=== PATIENT | female | born 1970 | race Caucasian/White ===

== ENCOUNTER → 2020-01-10 16:10 | Outpatient (BNVA) | payer OTHER, SELFPAY | PROVIDERS: Family Provider Nurse Practitioner Family; Visit Provider Nurse Practitioner Family | DX: Z20.828 Contact with and (suspected) exposure to other viral communicable diseases (principal); J06.9 Acute upper respiratory infection, unspecified | CPT/HCPCS: 87635 ==

== ENCOUNTER → 2020-10-25 09:37 | Outpatient (BNVA) | payer OTHER, SELFPAY | PROVIDERS: Family Provider Nurse Practitioner Family; Visit Provider Nurse Practitioner Family | DX: Z20.828 Contact with and (suspected) exposure to other viral communicable diseases (principal) | CPT/HCPCS: 87635 ==

== ENCOUNTER 2021-05-11 09:22 | Emergency (ER) | payer SELFPAY ==
[2021-05-11 09:57] VITALS: BP 164/89; PULSE 109; RESP 20; TEMP 38.1; O2SAT 95; BMI 34.9
--- NOTE | 2021-05-11 10:03 | XRR_ITS ---
PROCEDURE INFORMATION: Exam: XR Chest Exam date and time: 05/11/2021 10:03 AM Age: 50 years old Clinical indication: Cough and shortness of breath TECHNIQUE: Imaging protocol: XR of the chest. Views: 1 view. Total images: 2 COMPARISON: [facility] Abdomen 1 view 07/01/2017 3:42 PM FINDINGS: Lungs: Unremarkable. No consolidation. Pleural spaces: Unremarkable. No pleural effusion. No pneumothorax. Heart/Mediastinum: Unremarkable. No cardiomegaly. Bones/joints: Unremarkable. XR/XR chest 1V portable [id number] IMPRESSION: No acute findings.
--- NOTE | 2021-05-11 10:09 | W.ED.COVID ---
Documented by User: FLORESITA Tamayo 05/11/21 12:44 HPI - COVID General: Chief Complaint: COVID symptoms Stated Complaint: Covid + diff breathing, coughing, headache Time Seen by Provider: 05/11/21 10:03 Triage information: Has fever, cough or shortness of breath. No known COVID + exposure last 14 days History of Present Illness: Patient tested positive at home in the last week. She tested 7 days ago and then she tested again on Friday. Patient placed but fever body aches cough MD complaint: known COVID positive Prior covid testing: yes, results known Prior testing date: 05/07/21 COVID 19 common symptoms: positive productive cough, dyspnea and headache(s); negative fever(s), chills, non-productive cough, body aches, throat pain, nasal congestion, nausea or vomiting COVID 19 other sytmptoms: negative chest pain Onset (ago): day(s) Severity: mild COVID Results: SARS-CoV-2 RNA (RT-PCR) Not detected (NOT DETECTED) 10/25/20 09:37 10/25/20 Review of Systems Const: Denies: fever(s), chills or body aches Eyes: Denies: change in vision or blurry vision ENMT: Denies: throat pain or nasal congestion Card: Denies: chest pain or dyspnea on exertion Resp: Reports: dyspnea and productive cough; Denies: non-productive cough GI: Denies: abdominal pain, nausea or vomiting Musc: Reports: extremity pain and other (Muscle aches) Skin/Breast: Denies: rash Neuro: Reports: headache(s) Psych: Denies: anxiety or depression Bijan/Lymph: Denies: easy bruising Physical Exam Const: COMMON NORMALS: no acute distress, average body habitus and patient oriented x3 HENMT: COMMON NORMALS: normocephalic HEAD & SCALP: normal to inspection and normocephalic FACE & SINUS: normal facial exam Eye: COMMON NORMALS: conjunctivae normal GENERAL EYE: appearance normal, both eyes and all related structures CONJUNCTIVA: Yes conjunctivae normal Neck/C-Spine: COMMON NORMALS: no JVD Chest: COMMONS NORMALS: normal inspection of the chest Resp: COMMON NORMALS: normal respiratory effort Cardio: COMMON NORMALS: no JVD RATE: tachycardic GI: INSPECTION: Yes normal to inspection Extremity: COMMON NORMALS: normal to inspection and full ROM Neuro: COMMON NORMALS: patient oriented x3 Skin: OTHER: Hot to touch Course Vital Signs: Vital signs: Vital Signs Temperature 100.6 F H 05/11/21 10:43 Pulse Rate 107 H 05/11/21 10:43 Respiratory Rate 20 H 05/11/21 10:43 Blood Pressure 164/89 05/11/21 10:43 Pulse Oximetry 94 05/11/21 10:43 MDM - COVID Medical Decision Making Patient with Covid symptoms. Patient is stable. Chest x-ray is clear. Lab Data Radiology Impressions Chest X-Ray 05/11/21 10:03 IMPRESSION: No acute findings. SARS-CoV-2 RNA (RT-PCR) Not detected (NOT DETECTED) 10/25/20 09:37 10/25/20 Discharge Plan Discharge Patient Disposition: Home Clinical Impression: COVID-19 Condition: Stable Prescriptions: New Decadron 6 mg tablet 6 mg PO DAILY Qty: 7 0RF cephalexin 500 mg capsule 500 mg PO Q8H 7 Days Qty: 21 0RF Discontinued prednisone 20 mg tablet 40 mg PO DAILY 5 Days Qty: 10 0RF Discharge Orders: Discharge ED (Routine); Ordered 05/11/21 Ordered By: Ben Domínguez Discharge Diet: Advance as tolerated Discharge Activity: Increase activity as tolerated Patient Instructions: COVID-19 (Coronavirus Disease 2019) (ED) Activity Restrictions/Additional Instructions: Follow-up with medical provider as directed. Take medications as prescribed. Return to the ER or your medical provider if condition worsens. Please read and understand discharge instructions. If any questions ask please. Coding Level of Care Code ED Insulation Estimator for Chg Fwd Exam Comprehensive Documented by User: David Ambrose DO 05/11/21 15:21 HPI - COVID General: Chief Complaint: COVID symptoms Stated Complaint: Covid + diff breathing, coughing, headache Time Seen by Provider: 05/11/21 10:03 COVID Results: SARS-CoV-2 RNA (RT-PCR) Not detected (NOT DETECTED) 10/25/20 09:37 10/25/20 Course Vital Signs: Vital signs: Vital Signs Temperature 100.6 F H 05/11/21 10:43 Pulse Rate 107 H 05/11/21 10:43 Respiratory Rate 20 H 05/11/21 10:43 Blood Pressure 164/89 05/11/21 10:43 Pulse Oximetry 94 05/11/21 10:43 MDM - COVID Medical Decision Making Patient with Covid symptoms. Patient is stable. Chest x-ray is clear. Chart reviewed and patient discussed with midlevel. Agree with assessment and plan. Medical Records I reviewed the patient's medical records. Lab Data I reviewed the patient's lab results. Radiology Impressions Chest X-Ray 05/11/21 10:03 IMPRESSION: No acute findings. SARS-CoV-2 RNA (RT-PCR) Not detected (NOT DETECTED) 10/25/20 09:37 10/25/20 Discharge Plan Discharge Patient Disposition: Home Clinical Impression: COVID-19 Condition: Stable Prescriptions: New Decadron 6 mg tablet 6 mg PO DAILY Qty: 7 0RF cephalexin 500 mg capsule 500 mg PO Q8H 7 Days Qty: 21 0RF Discontinued prednisone 20 mg tablet 40 mg PO DAILY 5 Days Qty: 10 0RF Discharge Orders: Discharge ED (Routine); Ordered 05/11/21 Ordered By: Ben Domínguez Discharge Diet: Advance as tolerated Discharge Activity: Increase activity as tolerated Patient Instructions: COVID-19 (Coronavirus Disease 2019) (ED) Activity Restrictions/Additional Instructions: Follow-up with medical provider as directed. Take medications as prescribed. Return to the ER or your medical provider if condition worsens. Please read and understand discharge instructions. If any questions ask please. Coding Level of Care Code ED Insulation Estimator for Marlo Fwd Exam Comprehensive
[2021-05-11] MEDS: acetaminophen 500 mg Tablet 1000 MG PO (10:40)
[2021-05-11] MEDS: ibuprofen 600 mg Tablet PO (10:40)
[2021-05-11 10:43] VITALS: BP 164/89; PULSE 107; RESP 20; TEMP 38.1; O2SAT 94
== END 2021-05-11 10:44 | disposition home or self-care (01) ==
PROVIDERS: Emergency Provider Nurse Practitioner Family
DX: U07.1 COVID-19 (principal)
CPT/HCPCS: 71045; 99283

== ENCOUNTER → 2023-09-16 15:01 | Outpatient (BNVA) | payer SELFPAY | PROVIDERS: PCP Nurse Practitioner Family; Referring Provider Nurse Practitioner Family; Visit Provider Nurse Practitioner Women's Health | DX: Z12.4 Encounter for screening for malignant neoplasm of cervix (principal); N92.6 Irregular menstruation, unspecified | CPT/HCPCS: 87624 ==